=== PATIENT | female | born 1970 | race Caucasian/White ===

== ENCOUNTER → 2021-07-28 15:56 | Outpatient (CLI) | payer OTHER, SELFPAY ==
--- NOTE | ~2021-07-28 | MM_ITS ---
EXAMINATION: MM screening [facility] w matilde HISTORY: Screening mammogram TECHNIQUE: Craniocaudal and mediolateral oblique 3-D tomosynthesis images were obtained and synthetic 2-D images were generated. CAD analysis was submitted and interpreted. COMPARISON: 02/06/2019 diagnostic right mammogram and limited right breast ultrasound /02/2019, 04/05/2017, 01/27/2016 bilateral digital screening mammogram examinations BREAST PARENCHYMAL COMPOSITION: There are scattered areas of fibroglandular density. FINDINGS: There is no evidence of suspicious mass, calcification, or architectural distortion to sugg est malignancy in either breast. There has been no suspicious interval change. IMPRESSION: 1. No mammographic evidence of malignancy. 2. Recommend routine screening mammography in one year. BI-RADS Category 1: Negative Reviewed, dictated and finalized at location A.
== END ==
PROVIDERS: PCP Family Medicine; Visit Provider Family Medicine
DX: Z12.31 Encounter for screening mammogram for malignant neoplasm of breast (principal)
CPT/HCPCS: 77063; 77067

== ENCOUNTER 2022-05-30 11:12 | Emergency (ER) | payer OTHER, SELFPAY ==
[2022-05-30] VITALS (8 sets, daily range): BP systolic 101–129; BP diastolic 66–79; PULSE 49–97; RESP 11–19; TEMP 36.4; O2SAT 98–100
--- NOTE | ~2022-05-30 | XR_ITS ---
EXAMINATION: XR chest 1V portable 05/30/2022 12:02 INDICATION: Chest pain PROCEDURE: AP portable chest COMPARISON: No prior studies for comparison. FINDINGS: The lungs are clear. The cardiomediastinal silhouette is within normal limits. There are no pleural effusions. There is no pneumothorax suspected. There is dextroscoliosis of the thoracic spine. IMPRESSION: 1: NO ACUTE CARDIOPULMONARY DISEASE. Reviewed, dictated and finalized at location A.
--- NOTE | 2022-05-30 11:31 | ECG_ITS ---
Measurements Intervals [place] Rate: 63 P: 7 TX: 145 QRS: 34 QRSD: 93 T: 31 QT: 414 QTc: 426 Interpretive Statements SINUS RHYTHM WITH SINUS ARRHYTHMIA NO PREVIOUS ECG AVAILABLE FOR COMPARISON Electronically Signed On 05-30-2022 18:21:14 CDT by Alejandra Neal M.D.
[2022-05-30] MEDS: ASPIRIN 81 MG CHEWABLE TABLET 324 MG PO (11:41)
[2022-05-30 12:13] LABS: Basophils Percent Auto 0.9 % (0.2-1.2); Eosinophils Absolute Auto 0.1 K/mm3 (0-0.3); Eosinophils Percent Auto 2.4 % (0-4.4); Hematocrit 41.3 % (37.0-47.0); Immature Granulocyte Absolute 0.01 K/mm3 (0.00-0.031); Immature Granulocyte Percent A 0.2 % (0-0.5); Lymphocytes Absolute Auto 1.53 K/mm3 (0.9-3.2); Lymphocytes Percent Auto 33.4 % (18.3-44.2); Mean Corpuscular HGB Conc 33.9 g/dl (32-36); Mean Corpuscular Hemoglobin 31.3 pg (26-34); Mean Corpuscular Volume 92.2 fl (80-100); Monocytes Absolute Auto 0.6 K/mm3 (0.1-0.6); Monocytes Percent Auto 13.5 % (2.6-8.5); Neutrophils Absolute Auto 2.3 K/mm3 (1.3-6.7); Neutrophils Percent Auto 49.6 % (45.5-73.1); Platelet Count Result 160 k/mm3 (150-375); Red Blood Count 4.48 M/mm3 (4.2-5.4); Red Cell Distribution Width 13.5 % (11.5-14.5); White Blood Count 4.6 K/mm3 (4.5-10.0)
[2022-05-30 12:26] LABS: Alanine Aminotransferase 56 U/L (6-35); Albumin Level 4.2 g/dL (3.5-5.1); Alkaline Phosphatase 69 U/L (38-126); Anion Gap 7 mmol/L (8-16); Aspartate Amino Transferase 41 U/L (14-36); Bilirubin,Total 0.4 mg/dL (0.2-1.3); Blood Urea Nitrogen 13 mg/dL (7-17); Calcium 9.2 mg/dL (8.4-10.2); Carbon Dioxide 23 mmol/L (22-30); Chloride 105 mmol/L (98-107); Estimated CRCL calculation 71 ml/min; Estimated Glomerular Filt Rate > 60; Glucose 109 mg/dL (65-110); Lipase 64 U/L (23-300); Potassium 4.4 mmol/L (3.4-5.0); Sodium 135 mmol/L (137-145)
[2022-05-30 12:32] LABS: Partial Thromboplastin Time 26.9 SECONDS (22.3-36.8); Prothrombin Time 12.6 Seconds (11.1-14.7)
[2022-05-30 12:38] LABS: Troponin I < 0.012 ng/mL (0.000-0.034)
[2022-05-30 15:43] LABS: Troponin I < 0.012 ng/mL (0.000-0.034)
--- NOTE | 2022-05-30 17:47 | ED.GENADULT ---
HPI - General Adult General Chief complaint: Chest Pain Stated complaint: chest pain Time Seen by Provider: 05/30/22 11:32 History of Present Illness HPI narrative: This is a 51-year-old female presents to ED with chief complaint of chest pain. Started 11:00 a.m. this morning. While she was watching TV. He describes a sharp substernal pain that does not radiate. It is initially 6/10 but has decreased to a 1/10 intensity. It was sudden in onset and is improving. she has experienced similar pain in the past she relates to her GERD.. Improved with ibuprofen and aspirin. There are no exacerbating factors. Is not associated with diaphoresis, vomiting or exertion. Denies fever, chills, shortness of breath, lower extremity edema. Related Data Allergies Allergy/AdvReac Type Severity Reaction Status Date / Time tetracycline Allergy Mild hives Verified 05/30/22 11:28 Tetracyclines Allergy Unknown hives Verified 05/30/22 11:28 Review of Systems Review of Systems: CONSTITUTIONAL: Denies night sweats. EYES: No eye pain ENT: Denies rhinorrhea CARDIOVASCULAR: Denies palpitations RESPIRATORY: Denies hemoptysis GASTROINTESTINAL: Denies hematemesis GENITOURINARY: Denies hematuria. SKIN: Denies rash MUSCULOSKELETAL: Denies myalgia. NEUROLOGIC: Denies weakness. PSYCHIATRIC: Denies delusions PMFSH Past Medical History Medical History Acid reflux Endometriosis MDD (major depressive disorder), recurrent episode, severe Surgical History Surgical History H/O exploratory laparotomy H/O LEEP Family History Family History Mother Depression COPD (chronic obstructive pulmonary disease) Father Family history of malignant neoplasm of kidney Heart disease Osteoarthritis Social History Social History Social History: Smoking status: Never smoker Second hand tobacco smoke exposure: No Alcohol intake: never Substance use: never Substance use type: does not use Additional occupation/education comments: Stay at home mom. Gender identity (if verbalized by the patient): Female Sexual Orientation (if Verbalized by the Patient): Straight or Heterosexual Course Vital Signs Vital signs: Vital Signs Pulse Rate 61 05/30/22 11:24 Respiratory Rate 11 L 05/30/22 11:24 Blood Pressure 119/79 05/30/22 11:24 Pulse Oximetry 100 05/30/22 11:24 Temperature 97.5 F L 05/30/22 11:25 Pulse Rate 97 05/30/22 16:40 Respiratory Rate 19 05/30/22 16:40 Blood Pressure 129/76 05/30/22 16:40 Pulse Oximetry 99 05/30/22 16:40 Oxygen Delivery Room Air 05/30/22 11:25 Medical Decision Making MDM Narrative Medical decision making narrative: Patient's EKGs and labs are reviewed without significant high risk changes. Cardiac risk factors reviewed. Heart score is <4 and it iss reasonable for further risk stratification to be performed as outpatient. Pain was not sudden or maximal onset not tearing or ripping quality. No other signs or symptoms suggest aortic dissection. A low risk Wells criteria is noted. PE is felt to be unlikely. No pneumonia seen on evaluation today. Patient is felt to be reasonable candidate for continued evaluation as an outpatient. Patient believes her pain is due to GERD. She has been given a 6 week course of Pepcid Vital Signs Vital Signs: Vital Signs Pulse Rate 61 05/30/22 11:24 Respiratory Rate 11 L 05/30/22 11:24 Blood Pressure 119/79 05/30/22 11:24 Pulse Oximetry 100 05/30/22 11:24 Temperature 97.5 F L 05/30/22 11:25 Pulse Rate 97 05/30/22 16:40 Respiratory Rate 19 05/30/22 16:40 Blood Pressure 129/76 05/30/22 16:40 Pulse Oximetry 99 05/30/22 16:40 Oxygen Delivery Room Air 05/30/22 11:25 Lab Data
== END 2022-05-30 16:40 | disposition home or self-care (01) ==
PROVIDERS: Emergency Medicine; Emergency Provider Emergency Medicine; PCP Family Medicine
DX: R07.9 Chest pain, unspecified (principal); K21.9 Gastro-esophageal reflux disease without esophagitis; F32.9 Major depressive disorder, single episode, unspecified
CPT/HCPCS: 36415; 71045; 80053; 83690; 84484; 85025; 85610; 85730; 93005; 99284; A9270

== ENCOUNTER → 2022-07-12 08:02 | Outpatient (CLI) | payer OTHER, SELFPAY ==
--- NOTE | ~2022-07-12 | US_ITS ---
US abdomen limited DATE: 07/12/2022 08:29 INDICATION: Right upper quadrant abdominal pain TECHNIQUE: Real-time imaging of liver, pancreas, gallbladder COMPARISON: None FINDINGS: No hepatic or pancreatic space-occupying mass lesion is detected. Normal hepatopedal portal venous flow direction. No gallstones, gallbladder wall thickening or pericholecystic fluid collectio n. Negative sonographic Toscano's sign. The common bile duct measures 5 mm, normal. IMPRESSION: No significant abnormality Reviewed, dictated and finalized at Location A. Reviewed, dictated and finalized at location B. IMPRESSION: No significant abnormality
== END ==
PROVIDERS: PCP Family Medicine; Visit Provider Family Medicine
DX: R10.11 Right upper quadrant pain (principal)
CPT/HCPCS: 76705

== ENCOUNTER → 2023-08-05 12:27 | Outpatient (CLI) | payer OTHER, SELFPAY ==
--- NOTE | ~2023-08-05 | MM_ITS ---
EXAMINATION: MM screening [facility] BI w matilde HISTORY: Screening TECHNIQUE: Craniocaudal and mediolateral oblique 3-D tomosynthesis images were obtained and synthetic 2-D images were generated. CAD analysis was submitted and interpreted. COMPARISON: Comparison to multiple prior studies sequentially, with oldest reviewed study dated 05/2016. BREAST PARENCHYMAL COMPOSITION: There are scattered areas of fibroglandular density. FINDINGS: There is no evidence of suspicious mass, calcification, or architectural distortion to sugg est malignancy in either breast. There has been no suspicious interval change. IMPRESSION: 1. No mammographic evidence of malignancy. 2. Recommend routine screening mammography in one year. BI-RADS Category 1: Negative Reviewed, dictated and finalized at location A.
== END ==
PROVIDERS: PCP Physician Assistant; Visit Provider Physician Assistant
DX: Z12.31 Encounter for screening mammogram for malignant neoplasm of breast (principal)
CPT/HCPCS: 77063; 77067

== ENCOUNTER 2024-03-04 15:22 | Emergency (ER) | payer OTHER, SELFPAY ==
--- NOTE | ~2024-03-04 | XR_ITS ---
EXAMINATION: XR finger 4th LT min 2V DATE: 03/04/2024 16:10 INDICATION: Left hand fourth digit injury and swelling. TECHNIQUE: 3 views of left hand fourth digit were obtained. COMPARISON: None. FINDINGS: There is an oblique fracture of the diaphysis and neck of fourth middle phalanx. The distal fracture fragment demonstrates near-anatomic alignment. There is mild osteoarthritis of fourth dista l interphalangeal joint. IMPRESSION: 1. Extra-articular oblique fracture of fourth middle phalanx. Reviewed, dictated and finalized at location E.
--- NOTE | ~2024-03-04 | XR_ITS ---
EXAMINATION: XR finger 4th LT min 2V DATE: 03/04/2024 17:16 INDICATION: Left hand fourth digit injury. TECHNIQUE: 4 views of left hand fourth digit were obtained. COMPARISON: Radiographs at 4:05 PM FINDINGS: There is an oblique fracture involving the neck and diaphysis of fourth middle phalanx in n ear-anatomic alignment. There is mild osteoarthritis of fourth distal interphalangeal joint. IMPRESSION: 1. Extra-articular oblique fracture of fourth middle phalanx. Reviewed, dictated and finalized at location E.
[2024-03-04 15:33] VITALS: BP 115/78; PULSE 64; RESP 18; TEMP 36.7; O2SAT 99
--- NOTE | 2024-03-04 17:47 | ED.GENADULT ---
HPI - General Adult General Chief complaint: Extremity Injury, Upper Stated complaint: I think I broke my fingers Time Seen by Provider: 03/04/24 16:35 History of Present Illness HPI narrative: Patient is a 53-year-old female who presents ER with left 4th digit injury. She was walking her dog when it pulled on the leash causing sudden onset pain. Her wedding ring is stuck on the finger due to swelling. No numbness or tingling. Limited range motion due to pain. Related Data Allergies Allergy/AdvReac Type Severity Reaction Status Date / Time tetracycline Allergy Mild hives Verified 02/19/23 15:04 Tetracyclines Allergy Unknown hives Verified 02/19/23 15:04 blue dye Allergy Unknown Verified 03/04/24 15:36 Review of Systems Musculoskeletal: Musculoskeletal: Reports arthralgias and Reports joint swelling Integumentary/Breasts: Skin/Breast: Reports system reviewed and no additional complaints, except as docu Neurologic: Reports system reviewed and no additional complaints, except as documented PMFSH Past Medical History Medical History Bloating Constipation Diarrhea Endometriosis MDD (major depressive disorder), recurrent episode, severe Mixed hyperlipidemia RUQ abdominal pain Vaginal irritation Surgical History Surgical History H/O exploratory laparotomy H/O LEEP Family History Family History Mother Depression COPD (chronic obstructive pulmonary disease) Father Family history of malignant neoplasm of kidney Heart disease Osteoarthritis Social History Social History (Updated 02/19/23 @ 15:07 by Shilpi Romero) Social History: Smoking status: Never smoker Second hand tobacco smoke exposure: No Alcohol intake: never Substance use: never Substance use type: does not use Lack of Transportation: No Lack of Food: Never True Current Housing: I Have Housing Concerned About Future Housing: No Difficulty Paying Gas/Electric Bills: No Difficulty Paying for Meds: No Currently Unemployed: YES Education: Decline to Answer Difficulty w/ Childcare or Family Care: No Living arrangements: with family Occupation/Education: unemployed Additional occupation/education comments: Stay at home mom. Gender identity (if verbalized by the patient): Female Sexual Orientation (if Verbalized by the Patient): Straight or Heterosexual Exam Narrative: GENERAL: Well-appearing, well-nourished, and in no acute distress. HEAD: Normocephalic, atraumatic. HEART: Regular rate and rhythm. Normal peripheral pulses. EXTREMITIES: Right hand with tenderness over the middle phalanx of the 4th digit. Swelling at the PIP with the wedding ring stuck proximally.. SKIN: Warm, dry, no rash. NEURO: Alert and oriented x3. PSYCH: Normal mood and affect. Course Course Emergency Course: String technique used to decrease edema and move the wedding ring off of the finger. Repeat x-rays show no change the fracture. Patient was splinted by the nursing staff with an Alumafoam splint. Referred to PCP. Vital Signs Vital signs: Vital Signs Temperature 98.1 F 03/04/24 15:33 Pulse Rate 64 03/04/24 15:33 Respiratory Rate 18 03/04/24 15:33 Blood Pressure 115/78 03/04/24 15:33 Pulse Oximetry 99 03/04/24 15:33 Oxygen Delivery Room Air 03/04/24 15:33 Temperature 97.8 F 03/04/24 18:08 Pulse Rate 76 03/04/24 18:08 Respiratory Rate 16 03/04/24 18:08 Blood Pressure 132/80 03/04/24 18:08 Pulse Oximetry 100 03/04/24 18:08 Oxygen Delivery Room Air 03/04/24 15:33 Medical Decision Making Vital Signs Vital Signs: Vital Signs Temperature 98.1 F 03/04/24 15:33 Pulse Rate 64 03/04/24 15:33 Respiratory Rate 18 03/04/24 15:33 Blood Pressure 115/78 03/04/24 15:33 Pulse Oximetry 99
[2024-03-04 18:08] VITALS: BP 132/80; PULSE 76; RESP 16; TEMP 36.6; O2SAT 100
--- NOTE | 2024-03-12 12:09 | PC.NURSE ---
LATE ENTRY This note is being entered to document information to the patient's record. The following information was omitted on [03/04/24], by [ Dr. Ziegler]. EVARISTO for aluminum finger splint to be applied to left 4th digit
== END 2024-03-04 18:14 | disposition home or self-care (01) ==
PROVIDERS: Emergency Provider Emergency Medicine; PCP Family Medicine
DX: S62.603A Fracture of unspecified phalanx of left middle finger, initial encounter for closed fracture (principal); T14.90XA Injury, unspecified, initial encounter; F32.9 Major depressive disorder, single episode, unspecified
CPT/HCPCS: 29130; 73140; 99284

== ENCOUNTER 2024-04-06 13:37 | Outpatient (CLI) | payer OTHER, SELFPAY ==
--- NOTE | ~2024-04-06 | XR_ITS ---
EXAMINATION: XR finger 4th LT min 2V DATE: 04/06/2024 13:50 INDICATION: Fracture of left hand fourth middle phalanx. Follow-up. TECHNIQUE: 3 views of left hand fourth digit were obtained. COMPARISON: Left hand fourth digit radiographs 03/04/2024 FINDINGS: There is an oblique extra-articular fracture of fourth middle phalanx in near-anatomic alig nment. No significant callus identified. There is mild osteoarthritis of fourth distal interphalangea l joint. IMPRESSION: 1. Unchanged extra-articular oblique fracture of fourth middle phalanx. Reviewed, dictated and finalized at location E.
== END 2024-04-06 13:38 ==
PROVIDERS: PCP Family Medicine; Visit Provider Family Medicine
DX: S62.625A Displaced fracture of middle phalanx of left ring finger, initial encounter for closed fracture (principal)
CPT/HCPCS: 73140

== ENCOUNTER 2025-07-24 08:43 | Emergency (ER) | payer OTHER, SELFPAY ==
[2025-07-24 09:00] VITALS: BP 106/82; PULSE 79; RESP 16; TEMP 36.8; O2SAT 100
--- NOTE | 2025-07-24 09:06 | ED_ITS ---
HPI - Female Genitourinary General Chief complaint: Urogenital-Female Stated complaint: UTI SYMPTOMS Time Seen by Provider: 07/24/25 09:10 Source: patient Mode of arrival: ambulatory Limitations: no limitations History of Present Illness HPI Narrative: Camilla is a 54-year-old female patient presenting to the clinic today with complaints of possible UTI x3 days. She reports on Saturday she noticed some urinary frequency and malodorous urine. Reporting some bladder pressure and some lower back pain. She denies any fevers, chills, body aches. Did experience some slight nausea. Has not taken any medications for her symptoms. Related Data Allergies Allergy/AdvReac Type Severity Reaction Status Date / Time Tetracyclines Allergy Unknown hives Verified 07/24/25 08:55 blue dye Allergy Unknown Verified 07/24/25 08:55 Review of Systems Review of Systems: Pertinent positives per HPI. Patient denies any fever, chills, rash, headache, visual changes, dizziness, cough, shortness of breath, chest pain, palpitations, vomiting, diarrhea, constipation PMFSH Past Medical History Medical History Drug-induced anaphylaxis URI, acute Rhinosinusitis Major depressive disorder, recurrent, moderate Lipid screening IFG (impaired fasting glucose) Hyperlipidemia LDL goal <130 Encounter for vitamin deficiency screening Breast screening Bacterial infection, unspecified Abscess of left thigh Bloating Constipation Diarrhea RUQ abdominal pain Neoplasm of uncertain behavior of skin Vaginal irritation Hives Environmental allergies Abnormal Pap smear of cervix ASCUS favor benign Endometriosis MDD (major depressive disorder), recurrent episode, severe Mixed hyperlipidemia Surgical History Surgical History H/O LEEP H/O exploratory laparotomy Family History Family History Mother Depression COPD (chronic obstructive pulmonary disease) Father Family history of malignant neoplasm of kidney Heart disease Osteoarthritis Social History Social History Social History: Smoking status: Never smoker Second hand tobacco smoke exposure: No Alcohol intake: never Substance use: never Substance use type: does not use Lack of Transportation: No Lack of Food: Never True Current Housing: I Have Housing Concerned About Future Housing: No Difficulty Paying Gas/Electric Bills: No Difficulty Paying for Meds: No Currently Unemployed: YES Education: Decline to Answer Difficulty w/ Childcare or Family Care: No Living arrangements: with family Occupation/Education: unemployed Additional occupation/education comments: Stay at home mom. Gender identity (if verbalized by the patient): Female Sexual Orientation (if Verbalized by the Patient): Straight or Heterosexual Comments At the time of my signature, I reviewed and agree with the nursing past medical, surgical, social, and family history. There is no relevant family history pertinent to the patient complaint. Exam Narrative: General: Well-developed, well nourished, in no apparent distress. Head: Normocephalic, atraumatic. Cardio: Regular rate and rhythm, s1 and s2 normal, no murmur appreciated. Resp: Clear to auscultation bilaterally, no rhonchi, rales, wheezing or rubs. Abdomen: Soft, pliable, bowel sounds present in all quadrants, suprapubic tender to palpation, no organomegly, no CVAT tenderness. Course Course Emergency Course: Portions of this record may have been created with voice recognition software. Level of Care: Express Care Visit Vital Signs Vital signs: Vital Signs Temperature 36.8 C 07/24/25 09:00 Pulse Rate 79 07/24/25 09:00 Respiratory Rate 16 07/24/25 09:00 Blood Pressure 106/82 07/24/25 09:00 Pulse Oximetry 100 07/24/25 09:00 Temperature 36.8 C 07/24/25 09:00 Pulse Rate 79 07/24/25 09:00 Respiratory Rate 16 07/24/25 09:00 Blood Pressure 106/82 07/24/25 09:00 Pulse Oximetry 100 07/24/25 09:00 Vital signs reviewed MDM - Female Genitourinary MDM Narrative Medical decision making narrative: At the time of visit patient is resting comfortably on the exam table. Patient appears to be nontoxic. Complaints of possible UTI x3 days. She reports on Saturday she noticed some urinary frequency and malodorous urine. Reporting some bladder pressure and some lower back pain. She denies any fevers, chills, body aches. Did experience some slight nausea. Has not taken any medications for her symptoms. On exam patient has some mild suprapubic tenderness, no CVA tenderness, abdomen is soft and pliable. Urine dip ordered. Labs: Urine dip positive for 1+ leukocytes. We will send urine for culture. Plan: I suspect patient has UTI. Prescription for Bactrim was sent to the pharmacy. Supportive measures were discussed with the patient and they voiced understanding discharge instructions and agrees to treatment plan. Return precautions reviewed Differential Diagnosis Differential diagnosis: Likely urinary tract infection and cystitis Lab Data Labs: Lab Results 07/24/25 Range/Units 09:07 POC Urine Color Yellow POC Urine Clarity Clear POC Urine pH 6.0 POC Ur Specif [place] 1.010 POC Urine Protein Negative (Negative) POC Ur Glucose (UA) Negative (Negative) POC Urine Ketones Negative (Negative) POC Urine Blood Negative (Negative) POC Urine Nitrite Negative (Negative) POC Urine Bilirubin Negative (Negative) POC Urine Urobilinogen 0.2 POC U Leukocyte Esteras 1+ (Negative) Discharge Plan Discharge Clinical Impression: Acute UTI Patient Disposition: Home Condition: Stable Instructions: Antibiotic Form, Urinary Tract Infection in Women (ED) Additional Instructions: Urine was positive for 1+ leukocytes. We will send urine for culture Take Bactrim as prescribed Increase fluids and stay well hydrated Wipe front to back. May use wet wipes. Avoid tub baths If sexually active- pee before and after intercourse. Wear cotton panties Avoid tight clothing up against the genitals Follow up with your PCP in 1 week if symptoms persist. Patient Language: Russian Prescriptions: New sulfamethoxazole-trimethoprim [Bactrim DS] 800-160 mg tablet 1 tablet PO Q12H 5 Days Qty: 10 0RF No Action fluoxetine 10 mg tablet See Rx Instructions .ROUTE .COMPLEX Qty: 90 3RF Dose Instruction: TAKE 3 TABLETS BY MOUTH EVERY DAY Rx Instructions: TAKE 3 TABLETS BY MOUTH EVERY DAY rosuvastatin 5 mg tablet 5 mg PO DAILY Qty: 90 2RF Follow-up/Referrals: Taz Bardales MD [Primary Care Provider, Family Practice] Time of Disposition: 09:10 Quality NIHSS Nursing Documentation ED NIHSS nursing documentation: reviewed/agree
[2025-07-24 09:09] LABS: EDUAAPPEAR Clear; EDUABILI Negative (Negative); EDUABLOOD Negative (Negative); EDUACOLOR1 Yellow; EDUAGLUCOSE Negative (Negative); EDUAKETONE Negative (Negative); EDUALEUKO 1+ (Negative); EDUANITRATE Negative (Negative); EDUAPH 6.0; EDUAPROTEIN Negative (Negative); EDUASPGRAVITY 1.010; EDUAUROBILI 0.2
== END 2025-07-24 09:19 | disposition home or self-care (01) ==
PROVIDERS: Emergency Provider Nurse Practitioner Family; PCP Family Medicine
DX: N39.0 Urinary tract infection, site not specified (principal); R73.01 Impaired fasting glucose; N80.9 Endometriosis, unspecified; E78.2 Mixed hyperlipidemia; F33.9 Major depressive disorder, recurrent, unspecified; Z85.828 Personal history of other malignant neoplasm of skin
CPT/HCPCS: 81003; 87086; 99213; G0463

== ENCOUNTER 2025-08-07 15:25 | Emergency (ER) | payer OTHER, SELFPAY ==
[2025-08-07 15:34] VITALS: BP 108/82; PULSE 80; RESP 20; TEMP 36.4; O2SAT 100
[2025-08-07 15:46] LABS: EDUAAPPEAR Clear; EDUABILI Negative (Negative); EDUABLOOD Negative (Negative); EDUACOLOR1 Yellow; EDUAGLUCOSE Negative (Negative); EDUAKETONE Negative (Negative); EDUALEUKO Negative (Negative); EDUANITRATE Negative (Negative); EDUAPH 6.0; EDUAPROTEIN Negative (Negative); EDUASPGRAVITY 1.010; EDUAUROBILI 0.2
--- NOTE | 2025-08-07 15:48 | ED_ITS ---
HPI - Female Genitourinary General Chief complaint: Urogenital-Female Stated complaint: Uti Symptoms Patient presents to Express Care with complaints itching and tightness in her kidneys with urinary frequency. Patient noted she was treated for a UTI earlier this month and was started on Bactrim which caused adverse side effects and she was changed to amoxicillin. Patient did note she was feeling significantly better but then did miss 1 day of medications and symptoms started to return. She continued her medication until gone but symptoms did not completely resolved. Denies fever, chills, body aches, abdominal pain, blood in urine, or vaginal symptoms. Related Data Allergies Allergy/AdvReac Type Severity Reaction Status Date / Time Tetracyclines Allergy Unknown hives Verified 08/07/25 15:33 blue dye Allergy Unknown Verified 08/07/25 15:33 sulfamethoxazole (From Allergy Insomnia Verified 08/07/25 15:33 Bactrim) trimethoprim (From Bactrim) Allergy Insomnia Verified 08/07/25 15:33 Review of Systems Constitutional: Constitutional: Reports as per HPI, Denies chills and Denies fatigue Eyes: Eyes: Reports no additional eye complaints ENT: Reports system reviewed and no additional complaints, except as documented Cardiovascular: Cardiovascular: Reports no additional cardiovascular complaints Respiratory: Respiratory: Reports no additional respiratory complaints Gastrointestinal: Gastrointestinal: Reports as per HPI, Denies abdominal pain, Denies diarrhea, Denies nausea and Denies vomiting Genitourinary: Genitourinary: Reports as per HPI, Denies hematuria, Reports nocturia, Denies dysuria, Denies pelvic pain, Denies flank pain and Denies urinary incontinence Comments: Tightness/itching in kidneys Musculoskeletal: Musculoskeletal: Reports as per HPI and Denies back pain Integumentary/Breasts: Skin/Breast: Reports as per HPI, Denies erythema, Denies rash and Denies skin ulcer Neurologic: Reports as per HPI Psychiatric: Psychiatric: Reports no additional psychiatric complaints Endocrine: Endocrine: Reports no additional endocrine complaints Hematologic/Lymphatic: Hematologic/Lymphatic: Reports no additional hematologic/lymphatic complaints Allergic/Immunologic: Allergic/Immunologic: Reports no additional allergic/im munologic complaints PMFSH Past Medical History Medical History Drug-induced anaphylaxis URI, acute Rhinosinusitis Major depressive disorder, recurrent, moderate Lipid screening IFG (impaired fasting glucose) Hyperlipidemia LDL goal <130 Encounter for vitamin deficiency screening Breast screening Bacterial infection, unspecified Abscess of left thigh Bloating Constipation Diarrhea RUQ abdominal pain Neoplasm of uncertain behavior of skin Vaginal irritation Hives Environmental allergies Abnormal Pap smear of cervix ASCUS favor benign Endometriosis MDD (major depressive disorder), recurrent episode, severe Mixed hyperlipidemia Surgical History Surgical History H/O LEEP H/O exploratory laparotomy Family History Family History Mother Depression COPD (chronic obstructive pulmonary disease) Father Family history of malignant neoplasm of kidney Heart disease Osteoarthritis Social History Social History Social History: Smoking status: Never smoker Second hand tobacco smoke exposure: No Alcohol intake: never Substance use: never Substance use type: does not use Lack of Transportation: No Lack of Food: Never True Current Housing: I Have Housing Concerned About Future Housing: No Difficulty Paying Gas/Electric Bills: No Difficulty Paying for Meds: No Currently Unemployed: YES Education: Decline to Answer Difficulty w/ Childcare or Family Care: No Living arrangements: with family Occupation/Education: unemployed Additional occupation/education comments: Stay at home mom. Gender identity (if verbalized by the patient): Female Sexual Orientation (if Verbalized by the Patient): Straight or Heterosexual Exam Const: General: healthy appearing and no acute distress Nutritional Appearance: well nourished Orientation/consciousness: patient oriented x3 Limitations: no limitations Resp: Effort & Inspection: normal respiratory effort Auscultation: clear to auscultation bilaterally Cardio: Rate: regular rate Rhythm: regular rhythm GI: Inspection: non-distended GI Palp: Yes Soft to palpation, No Tenderness to palpation present (GI), No Guarding due to palpation present (GI), No Rigid due to palpation and No Rebound tenderness present Auscultation: normal bowel sounds : General: Yes bladder normal to palpation and Yes no CVA tenderness Back/Spine/Pelvis: Back: no CVA tenderness Skin: General skin exam: normal color Rashes: no rashes Wounds: no wounds Neuro: General: patient oriented x3 Speech: normal speech Gait exam (Neuro): Normal gait present Psych: Appearance: grossly normal Mental Status: mental status grossly normal Affect: normal affect Attitude: cooperative Course Course Level of Care: Express Care Visit Vital Signs Vital signs: Vital Signs Temperature 97.6 F 08/07/25 15:34 Pulse Rate 80 08/07/25 15:34 Respiratory Rate 20 08/07/25 15:34 Blood Pressure 108/82 08/07/25 15:34 Pulse Oximetry 100 08/07/25 15:34 Oxygen Delivery Room Air 08/07/25 15:34 Temperature 97.6 F 08/07/25 15:34 Pulse Rate 80 08/07/25 15:34 Respiratory Rate 20 08/07/25 15:34 Blood Pressure 108/82 08/07/25 15:34 Pulse Oximetry 100 08/07/25 15:34 Oxygen Delivery Room Air 08/07/25 15:34 MDM - Female Genitourinary MDM Narrative Medical decision making narrative: The patient was evaluated by myself in the express care. History is obtained from patient who is an independent historian and physical exam was performed. Available medical records were reviewed at this time. Exam findings show no acute concerns or changes; patient is non-toxic appearing and is in no distress. Patient is appropriate for outpatient treatment and follow-up. I have evaluated and discussed social determinants of health with the patient that could potentially impact subsequent diagnosis and treatment plans. Differential diagnosis and treatment plan were discussed with the patient. Patient agrees with discussion and after shared medical decision making agrees with plan of care. All questions were answered to the patient's satisfaction. Differential Diagnosis Differential diagnosis: Likely urinary tract infection, bacterial vaginosis, cervicitis, vaginitis and cystitis Medical Records Attestation: I reviewed the patient's medical records. Lab Data Attestation: I reviewed the patient's lab results. Labs: Lab Results 08/07/25 Range/Units 15:43 POC Urine Color Yellow POC Urine Clarity Clear POC Urine pH 6.0 POC Ur Specif [place] 1.010 POC Urine Protein Negative (Negative) POC Ur Glucose (UA) Negative (Negative) POC Urine Ketones Negative (Negative) POC Urine Blood Negative (Negative) POC Urine Nitrite Negative (Negative) POC Urine Bilirubin Negative (Negative) POC Urine Urobilinogen 0.2 POC U Leukocyte Esteras Negative (Negative) Discharge Plan Discharge Clinical Impression: Cystitis Patient Disposition: Home Condition: Stable Instructions: Antibiotic Form, Urinary Tract Infection in Women (ED) Additional Instructions: We will send a urine culture off to the lab; if the culture identifies an organism that the prescribed antibiotic will not treat, you will receive a phone call from an urgent care staff member and an appropriate antibiotic will be pres cribed. -Your symptoms should begin to improve within a day of starting antibiotics. But you should finish all the antibiotic pills you get. Otherwise your infection might come back. -Also recommend: drink more fluid. It might help flush out germs, and it does no harm -Tylenol/ibuprofen as needed for pain -Follow-up with your primary care provider for urine recheck OR if your symptoms persist, change or worsen significantly before you can contact your personal physician then please, without delay, go to the emergency department for further evaluation. Patient Language: Filipino Prescriptions: New cephalexin 500 mg capsule 500 mg PO Q12H Qty: 14 0RF No Action fluoxetine 10 mg tablet See Rx Instructions .ROUTE .COMPLEX Qty: 90 3RF Dose Instruction: TAKE 3 TABLETS BY MOUTH EVERY DAY Rx Instructions: TAKE 3 TABLETS BY MOUTH EVERY DAY rosuvastatin 5 mg tablet 5 mg PO DAILY Qty: 90 2RF Follow-up/Referrals: PHYSICIAN,WEAPONS OFFICER [Primary Care Provider, Internal Medicine] Time of Disposition: 15:50
== END 2025-08-07 15:55 | disposition home or self-care (01) ==
PROVIDERS: Emergency Provider Nurse Practitioner Family
DX: N30.90 Cystitis, unspecified without hematuria (principal); E78.2 Mixed hyperlipidemia; N80.9 Endometriosis, unspecified; R73.01 Impaired fasting glucose; F33.9 Major depressive disorder, recurrent, unspecified
CPT/HCPCS: 81003; 87086; 87186; 99213; G0463

== ENCOUNTER 2025-08-18 12:23 | Outpatient (CLI) | payer OTHER, SELFPAY ==
--- OUTSIDE RECORDS SUMMARY | 2025-08-18 13:38 | XMS_ITS | Clinical Summary ---
Author Organization [facility] Address [address] [place] [id number] Care Team Providers Care Access Rep Name Role Phone Mary Jo Stubbs MD Primary Care Provider [phone] Social History Tobacco Use Types Packs/Day Years Used Date Smoking Tobacco: Never Assessed Comments Unknown Sex and Gender Information Value Date Recorded Sex Assigned at Not on file Legal Sex Female 9:54 AM CDT Gender Identity Not on file Sexual Orientation Not on file Plan of Treatment Health Maintenance Due Date Last Done Comments Cervical Cancer Screening Pa p Smear (Age 30 to 64) Every 3 Years 1969 Colorectal Cancer Screening Colonoscopy (10 Years) 1969 Annual Physical 1972 Hepatitis C 1987 DTaP, Tdap and Td Vaccines ( 1 - Tdap) 1988 Hepatitis B Vaccines (1 of 3 - 19+ 3-dose series) 1988 Cervical Cancer Screening Pa p with HPV Testing (Age 30 to 64) Every 5 Years 1999 Cervical Cancer Screening with HPV 1999 Mammogram Screening 2009 Pneumococcal Vaccine: 50+ Ye ars (1 of 1 - PCV) 2019 Zoster Vaccines (1 of 2) 2019 PHQ-2 (Physician [place]) 10/21/2024 COVID-19 Vaccine ( - 2024-2 6 season) 2025 Influenza Adult (#1) 2025 Hepatitis A Vaccines Aged Out No long er eligible based on patient's age to complete this topic Meningococcal B Vaccine Aged Out No l onger eligible based on patient's age to complete this topic Meningococcal Vaccine Aged Out No john petra eligible based on patient's age to complete this topic RSV Immunizations Under 20 Months Aged Out No longer eligible based on patient's age to complete this topic [place] [address] Care Teams Access Rep Relationship Specialty Start Date End Date Mary Jo Stubbs MD [id number] [facility] [address] [place] [address] PCP - General FAMILY PRACTICE 04/13/24
[2025-08-18 16:25] LABS: Add Urine Microscopic? YES; Appearance Urine Clear (Clear); Glucose Urine UA Negative (Negative); Leukocyte Esterase Ur Negative LEU/UL (Negative); Need Manual Microscopic Reviewed; Nitrate Urine Negative (Negative); Non Pathogenic Casts 0-2; Specific Grav Ur 1.005 (1.001-1.035)
== END 2025-08-18 12:24 | disposition home or self-care (01) ==
PROVIDERS: PCP Family Medicine; Visit Provider Physician Assistant Medical
DX: R35.0 Frequency of micturition (principal); R30.0 Dysuria
CPT/HCPCS: 81001; 87086

== ENCOUNTER 2025-09-09 11:16 | Outpatient (CLI) | payer OTHER, SELFPAY ==
--- NOTE | ~2025-09-09 | MMUS_ITS ---
EXAMINATION: MM diagnostic [place] BI w matilde, US breast LT limited INDICATION: 54-year old female; presents for evaluation of palpable left breast lump which has been present for 8 years. COMPARISON: 08/05/2023 through 01/27/2016 TECHNIQUE: Digital breast tomosynthesis CC and MLO views of the BILATERAL breast and True lateral and spot compression of the LEFT breast were obtained with computer-aided detection to assist in interpretation of the study. A radiopaque skin marker was placed over the area of LEFT breast palpable lump. MAMMOGRAM FINDINGS: There are scattered areas of fibroglandular density. A superficial circumscribed mass in the superior medial left breast correlates to the radiopaque skin marker. Ultrasound was performed for further evaluation. There is no other suspicious mass, calcification, or architectural distortion to suggest malignancy in either breast. LEFT BREAST ULTRASOUND FINDINGS: Targeted evaluation of the area of concern was completed. There is a 1.34 x 0.79 x 1.14 cm Hypoechoic mass with low-level internal echoes located close to the skin surface with through transmission and with no detectable vascular flow at 10:00, 13 cm FN that correlates to the area of Palpable area identified by the patient. IMPRESSION: 1. LEFT breast complex mass at 10:00 location that correlates to the palpable lump is compatible with a sebaceous cyst. 2. No mammographic evidence of malignancy in either breast. RECOMMENDATION: Clinical management of palpable lump with follow-up to complete resolution. Annual screening bilateral mammography in 12 months BI-RADS 2, BENIGN Reviewed, dictated and finalized at location B. [facility] CLAIMS CLERK IMPRESSION: 1. LEFT breast complex mass at 10:00 location that correlates to the palpable l ump is compatible with a sebaceous cyst. 2. No mammographic evidence of malignancy in either breast. RECOMMENDATION: Clinical management of palpable lump with follow-up to complete resolution. Annual screening bilateral mammography in 12 months BI-RADS 2, BENIGN
== END 2025-09-09 11:17 | disposition home or self-care (01) ==
LOC: ANHFOHIMG 11:17
PROVIDERS: PCP Family Medicine; Visit Provider Surgery
DX: N63.22 Unspecified lump in the left breast, upper inner quadrant (principal)
CPT/HCPCS: 76642; 77062; 77066; G0279

== ENCOUNTER 2025-09-17 12:01 | Emergency (ER) | payer OTHER, SELFPAY ==
[2025-09-17 12:10] VITALS: BP 107/79; PULSE 93; RESP 16; TEMP 36.4; O2SAT 100
[2025-09-17 12:35] LABS: EDUAAPPEAR Clear; EDUABILI Negative (Negative); EDUABLOOD Negative (Negative); EDUACOLOR1 Light/Pale; EDUAGLUCOSE Negative (Negative); EDUAKETONE Negative (Negative); EDUALEUKO Negative (Negative); EDUANITRATE Negative (Negative); EDUAPH 6.0; EDUAPROTEIN Negative (Negative); EDUASPGRAVITY 1.005; EDUAUROBILI 0.2
--- NOTE | 2025-09-17 13:01 | ED_ITS ---
HPI - Female Genitourinary General Chief complaint: Urogenital-Female Stated complaint: Uti Symptoms Time Seen by Provider: 09/17/25 12:02 Source: patient Mode of arrival: ambulatory Limitations: no limitations History of Present Illness HPI Narrative: Camilla is a 54-year-old female patient presenting to the clinic today with complaints of possible UTI x1 day. She reports symptoms started yesterday with some frequency and urgency with urination. Noticed it this morning that she had some burning. States she did not drink a whole lot a water yesterday and that is not normal for her. She denies any back pain or abdominal pain. Does have some tenderness over her bladder. No fevers, chills, body aches. No nausea or vomiting. Has not taken any medications to treat her symptoms. Related Data Allergies Allergy/AdvReac Type Severity Reaction Status Date / Time Tetracyclines Allergy Unknown hives Verified 09/17/25 12:17 sulfamethoxazole (From Allergy Insomnia Verified 09/17/25 12:17 Bactrim) trimethoprim (From Bactrim) Allergy Insomnia Verified 09/17/25 12:17 nitrofurantoin (From AdvReac Severe Anxiety Verified 09/17/25 12:17 Macrobid) Review of Systems Review of Systems: Pertinent positives per HPI. Patient denies any fever, chills, rash, headache, visual changes, dizziness, cough, runny nose, sore throat, shortness of breath, chest pain, palpitations, nausea, vomiting, diarrhea, constipation, abdominal pain PMFSH Past Medical History Medical History Drug-induced anaphylaxis URI, acute Rhinosinusitis Major depressive disorder, recurrent, moderate Lipid screening IFG (impaired fasting glucose) Hyperlipidemia LDL goal <130 Encounter for vitamin deficiency screening Breast screening Bacterial infection, unspecified Abscess of left thigh Bloating Constipation Diarrhea RUQ abdominal pain Neoplasm of uncertain behavior of skin Vaginal irritation Hives Environmental allergies Abnormal Pap smear of cervix ASCUS favor benign Endometriosis MDD (major depressive disorder), recurrent episode, severe Mixed hyperlipidemia Surgical History Surgical History H/O LEEP H/O exploratory laparotomy Family History Family History Mother Depression COPD (chronic obstructive pulmonary disease) Father Family history of malignant neoplasm of kidney Heart disease Osteoarthritis Social History Social History Social History: Smoking status: Never smoker Second hand tobacco smoke exposure: No Alcohol intake: never Substance use: never Substance use type: does not use Lack of Transportation: No Lack of Food: Never True Current Housing: I Have Housing Concerned About Future Housing: No Difficulty Paying Gas/Electric Bills: No Difficulty Paying for Meds: No Currently Unemployed: YES Education: Decline to Answer Difficulty w/ Childcare or Family Care: No Living arrangements: with family Occupation/Education: unemployed Additional occupation/education comments: Stay at home mom. Gender identity (if verbalized by the patient): Female Sexual Orientation (if Verbalized by the Patient): Straight or Heterosexual Comments At the time of my signature, I reviewed and agree with the nursing past medical, surgical, social, and family history. There is no relevant family history pertinent to the patient complaint. Exam Narrative: General: Well-developed, well nourished, in no apparent distress. Head: Normocephalic, atraumatic. Cardio: Regular rate and rhythm, s1 and s2 normal, no murmur appreciated. Resp: Clear to auscultation bilaterally, no rhonchi, rales, wheezing or rubs. Abdomen: Soft, pliable, bowel sounds present in all quadrants, mild suprapubic- tender to palpation, no organomegly, no CVAT tenderness. Course Course Emergency Course: Portions of this record may have been created with voice recognition software. Level of Care: Express Care Visit Vital Signs Vital signs: Vital Signs Temperature 36.4 C L 09/17/25 12:10 Pulse Rate 93 09/17/25 12:10 Respiratory Rate 16 09/17/25 12:10 Blood Pressure 107/79 09/17/25 12:10 Pulse Oximetry 100 09/17/25 12:10 Temperature 36.4 C L 09/17/25 12:10 Pulse Rate 93 09/17/25 12:10 Respiratory Rate 16 09/17/25 12:10 Blood Pressure 107/79 09/17/25 12:10 Pulse Oximetry 100 09/17/25 12:10 Vital signs reviewed MDM - Female Genitourinary MDM Narrative Medical decision making narrative: At the time of visit patient is resting comfortably on the exam table. Patient appears to be nontoxic. Complaints of possible UTI x1 day. She reports symptoms started yesterday with some frequency and urgency with urination. Noticed it this morning that she had some burning. States she did not drink a whole lot a water yesterday and that is not normal for her. She denies any back pain or abdominal pain. Does have some tenderness over her bladder. No fevers, chills, body aches. No nausea or vomiting. Has not taken any medications to treat her symptoms. On exam patient has mild suprapubic tenderness otherwise exam is normal. Urinalysis dip ordered. Labs: Urinalysis dip negative for any sign of blood, protein, or leukocytes. Plan: I suspect patient has UTI symptoms. Recommend doing azo and follow-up with her PCP if her symptoms persist. Supportive measures were discussed with the patient and they voiced understanding discharge instructions and agrees to treatment plan. Return precautions reviewed Differential Diagnosis Differential diagnosis: Likely urinary tract infection, cystitis and other (Overactive bladder syndrome) Lab Data Labs: Lab Results 09/17/25 Range/Units 12:32 POC Urine Color Light/pale POC Urine Clarity Clear POC Urine pH 6.0 POC Ur Specif [place] 1.005 POC Urine Protein Negative (Negative) POC Ur Glucose (UA) Negative (Negative) POC Urine Ketones Negative (Negative) POC Urine Blood Negative (Negative) POC Urine Nitrite Negative (Negative) POC Urine Bilirubin Negative (Negative) POC Urine Urobilinogen 0.2 POC U Leukocyte Esteras Negative (Negative) Discharge Plan Discharge Clinical Impression: Symptoms of urinary tract infection Patient Disposition: Home Condition: Stable Instructions: Antibiotic Form, Dysuria (ED), Urinary Urgency and Frequency (DC) Additional Instructions: Urinalysis is negative for any sign of infection, blood, or protein in your urine. May take [id number] azo for the next 2 days to help alleviate symptoms. Increase fluids and stay well hydrated Wipe front to back. May use wet wipes. Avoid tub baths If sexually active- pee before and after intercourse. Wear cotton panties Avoid tight clothing up against the genitals Follow up with your PCP in 1 week if symptoms persist. Patient Language: Swedish Prescriptions: No Action rosuvastatin 5 mg tablet 5 mg PO DAILY Qty: 90 2RF fluoxetine 10 mg tablet See Rx Instructions .ROUTE .COMPLEX Qty: 90 3RF Dose Instruction: TAKE 3 TABLETS BY MOUTH EVERY DAY Rx Instructions: TAKE 3 TABLETS BY MOUTH EVERY DAY Follow-up/Referrals: PHYSICIAN,ENVIRONMENTAL MANAGEMENT SPECIALIST [Primary Care Provider, Internal Medicine] Time of Disposition: 12:26 Quality NIHSS Nursing Documentation ED NIHSS nursing documentation: reviewed/agree
== END 2025-09-17 12:30 | disposition home or self-care (01) ==
PROVIDERS: Emergency Provider Nurse Practitioner Family
DX: R35.0 Frequency of micturition (principal); R39.15 Urgency of urination; R30.0 Dysuria; E78.2 Mixed hyperlipidemia; N80.9 Endometriosis, unspecified; F33.9 Major depressive disorder, recurrent, unspecified
CPT/HCPCS: 81003; 99212; G0463